=== PATIENT | male | born 1965 | race Caucasian/White ===

== ENCOUNTER 2017-03-01 18:44 | Emergency (ER) | payer MEDICARE, MEDICAID ==
[2017-03-01] MEDS ORDERED: IPRATROPIUM/ALBUTEROL 0.5-2.5 MG/3 ML AMPUL NEB ONE ×2 (19:18→22:17)
[2017-03-01] MEDS ORDERED: PREDNISONE 20 MG TABLET PO ONE (19:18)
--- NOTE | 2017-03-01 19:20 | ER Document Report ---
ED Medical Screen (RME) - General Chief Complaint: Breathing Difficulty Stated Complaint: SHORTNESS OF BREATH Notes: This 52-year-old asthmatic patient from [place], reports going to eat it the [employer] restaurant last night. When he walked outside after eating he had sudden onset of wheezing chest tightness clear sputum and nasal congestion. He uses albuterol inhaler but does not seem to be helping. He continues to have some difficulty breathing. Quick exam shows him to have wheezes rhonchi, nasal congestion and clear sputum. This is most consistent with an allergic reaction either to the pollen or something he ate last night. I have greeted and performed a rapid initial assessment of this patient. A comprehensive ED assessment and evaluation of the patient, analysis of test results and completion of the medical decision making process will be conducted by additional ED providers. TRAVEL OUTSIDE OF THE [place] IN LAST 30 DAYS: No - Related Data Allergies/Adverse Reactions: azithromycin [From Zithromax] Allergy (Verified 03/01/17 18:46) clarithromycin [From Biaxin] Allergy (Verified 03/01/17 18:46) sulfamethoxazole [From Bactrim] Allergy (Verified 03/01/17 18:46) trimethoprim [From Bactrim] Allergy (Verified 03/01/17 18:46) Past Medical History Renal/ Medical History: Denies: Hx Peritoneal Dialysis Physical Exam - Vital signs Vitals: Temp Pulse Resp BP Pulse Ox 99.3 F 109 H 18 154/87 H 95 03/01/17 18:46 03/01/17 18:46 03/01/17 18:46 03/01/17 18:46 03/01/17 18:46 Course - Vital Signs Vital signs: Temp Pulse Resp BP Pulse Ox 99.3 F 109 H 18 154/87 H 95 03/01/17 18:46 03/01/17 18:46 03/01/17 18:46 03/01/17 18:46 03/01/17 18:46
[2017-03-01 19:31] LABS: ABSOLUTE BASOPHILS # (AUTO) 0.1 10^3/uL (0.0-0.2); ABSOLUTE EOSINOPHILS # (AUTO) 0.2 10^3/uL (0.0-0.6); ABSOLUTE LYMPHOCYTES (AUTO) 1.2 10^3/uL (0.5-4.7); ABSOLUTE MONOCYTES (AUTO) 0.8 10^3/uL (0.1-1.4); ABSOLUTE NEUT (AUTO) 5.6 10^3/uL (1.7-8.2); EOSINOPHILS % (AUTO) 2.3 % (0-6); HEMOGLOBIN 16.5 g/dL (13.5-17.0); HGB HCT DIFFERENCE 1.5; LYMPHOCYTES % (AUTO) 15.7 % (13-45); MEAN CORPUSCULAR HEMOGLOBIN 29.7 pg (27.0-33.4); MEAN CORPUSCULAR HGB CONC 34.4 g/dL (32.0-36.0); MEAN CORPUSCULAR VOLUME 86 fl (80-97); MONOCYTES % (AUTO) 10.1 % (3-13); RED BLOOD COUNT 5.57 10^6/uL (4.35-5.55); RED CELL DISTRIBUTION WIDTH 13.1 % (11.5-14.0); SEGMENTED NEUTROPHILS % (AUTO) 70.9 % (42-78); WHITE BLOOD COUNT 7.9 10^3/uL (4.0-10.5)
[2017-03-01 19:53] LABS: ALANINE AMINOTRANSFERASE 50 U/L (21-72); ALBUMIN 4.8 g/dL (3.5-5.0); ALKALINE PHOSPHATASE 53 U/L (38-126); ANION GAP 11 (5-19); ASPARTATE AMINO TRANSFERASE 36 U/L (17-59); BILIRUBIN,DIRECT 0.3 mg/dL (0.0-0.4); BILIRUBIN,TOTAL 0.8 mg/dL (0.2-1.3); BLOOD UREA NITROGEN 18 mg/dL (7-20); CALCIUM 9.8 mg/dL (8.4-10.2); CARBON DIOXIDE 29 mmol/L (22-30); CHLORIDE 103 mmol/L (98-107); GLUCOSE 114 mg/dL (75-110); POTASSIUM 4.7 mmol/L (3.6-5.0); SODIUM 143.1 mmol/L (137-145); TOTAL PROTEIN 7.1 g/dL (6.3-8.2)
--- NOTE | 2017-03-01 22:22 | ER Document Report ---
ED Respiratory Problem - General Chief Complaint: Breathing Difficulty Stated Complaint: SHORTNESS OF BREATH Notes: The patient is a 52-year-old male, past medical history asthma, current smoker, Nini's, mitral valve prolapse, presents with 1 day of wheezing, cough and rhinorrhea after he exited a restaurant last night. He did not have any foods that he is never eaten before. He tried using his albuterol inhaler without much relief of his symptoms. His asthma is well-controlled and he has not had an exacerbation in several years. He denies chest pain, leg swelling, hemoptysis, nausea, vomiting, abdominal pain, fevers or sputum. TRAVEL OUTSIDE OF THE [place] IN LAST 30 DAYS: No - Related Data Allergies/Adverse Reactions: azithromycin [From Zithromax] Allergy (Verified 03/01/17 18:46) clarithromycin [From Biaxin] Allergy (Verified 03/01/17 18:46) sulfamethoxazole [From Bactrim] Allergy (Verified 03/01/17 18:46) trimethoprim [From Bactrim] Allergy (Verified 03/01/17 18:46) Past Medical History - General Information source: Patient - Social History Smoking Status: Current Every Day Smoker Family History: Reviewed & Not Pertinent Patient has suicidal ideation: No Patient has homicidal ideation: No Renal/ Medical History: Denies: Hx Peritoneal Dialysis Review of Systems - Review of Systems Notes: REVIEW OF SYSTEMS: CONSTITUTIONAL: -fevers, -chills EENT: +rhinnorhea, -eye pain, -difficulty swallowing CARDIOVASCULAR:-chest pain, -syncope. RESPIRATORY: +cough, +SOB GASTROINTESTINAL: -abdominal pain, - nausea, -vomiting, -diarrhea GENITOURINARY: -dysuria, -hematuria MUSCULOSKELETAL: -back pain, -neck pain SKIN: -rash or skin lesions. HEMATOLOGIC: -easy bruising or bleeding. LYMPHATIC: -swollen, enlarged glands. NEUROLOGICAL: -altered mental status or loss of consciousness, -headache, - neurologic symptoms PSYCHIATRIC: -anxiety, -depression. ALL OTHER SYSTEMS REVIEWED AND NEGATIVE. Physical Exam - Vital signs Vitals: Temp Pulse Resp BP Pulse Ox 99.3 F 109 H 18 154/87 H 95 03/01/17 18:46 03/01/17 18:46 03/01/17 18:46 03/01/17 18:46 03/01/17 18:46 - Notes Notes: PHYSICAL EXAMINATION: GENERAL: Well-appearing, well-nourished and in no acute distress. HEAD: Atraumatic, normocephalic. EYES: Pupils equal round and reactive to light, extraocular movements intact, sclera anicteric, conjunctiva are normal. ENT: Clear rhinorrhea, nares patent, oropharynx clear without exudates. Moist mucous membranes. NECK: Normal range of motion, supple without lymphadenopathy LUNGS: Coarse breath sounds with rhonchi and wheezes. No respiratory distress. HEART: Regular rate and rhythm ABDOMEN: Soft, nontender, normoactive bowel sounds. No guarding, no rebound. No masses appreciated. EXTREMITIES: Normal range of motion, no pitting or edema. No cyanosis. NEUROLOGICAL: Cranial nerves grossly intact. Normal speech, normal gait. Normal sensory, motor, and reflex exams. PSYCH: Normal mood, normal affect. SKIN: Warm, Dry, normal turgor, no rashes or lesions noted. Course - Re-evaluation Re-evalutation: Patient with a mild asthma exacerbation, which may be from pollen or pine tree allergies, since he is visiting from [place]. After steroids and 3 DuoNeb 's, patient feels much better and is in no respiratory distress. Repeat lung exam shows resolution of his wheezes. Will send home with 4 more days of prednisone and instructions to use his home albuterol as needed. Given strict return precautions and he understands. - Vital Signs Vital signs: Temp Pulse Resp BP Pulse Ox 99.3 F 109 H 18 154/87 H 95 03/01/17 18:46 03/01/17 18:46 03/01/17 18:46 03/01/17 18:46 03/01/17 18:46 - Laboratory Result Diagrams: 03/01/17 19:20 03/01/17 19:20 Laboratory results interpreted by me: 03/01/17 03/01/17 19:20 19:20 RBC 5.57 H Plt Count 127 L Glucose 114 H Discharge - Discharge Clinical Impression: Asthma exacerbation Condition: Good Additional Instructions: ASTHMA: You have been diagnosed as having asthma. This is a condition where there is episodic tightness in the bronchial tubes. Allergies, infections, and polluted or cold air may be contributing factors. Emergency treatment of a severe asthma attack may include adrenaline shots , or bronchodilator aerosol. You may feel lightheaded, have a decreased exercise tolerance and a rapid pulse for an hour or two. Rest and get plenty of fluids. Home treatment of asthma requires bronchodilator drugs. These can be administered by injection, inhalation, or by mouth. Antibiotics and corticosteroids may be required for some patients. You should avoid chemical fumes, dusts, pollens, and exercising in very cold or dry air. If you smoke, stop!! If you develop a fever, increased wheezing, chest pain, or severe shortness of breath, you should contact the doctor immediately. STEROID MEDICATION: You have been given an injection of or oral medicine of the cortisone/ steroid class. This medication is used to control inflammation or allergy. Gustavo t is usually only given for a short period of time, until the acute process subsides. There are usually no side effects from short-term use of cortisone-like medications. Some persons feel an increased sense of well-being and are not sleepy at bedtime. Long-term use of cortisone medications is best avoided, unless required for a severe condition. If your condition does not remit, or relapses after the course of corticosteroid medication, you should consult your physician. INHALED BRONCHODILATORS: You have received treatment(s) of and/or prescription for an inhaled bronchodilator -- a medication which stimulates the airways in the lung to dilate. This improves the flow of air in asthma, bronchitis, and emphysema. These medicines have some similarity to adrenaline, and can cause similar side effects: shakiness, racing heart, and a sense of nervousness. These side effects decrease with time. Contact your doctor if these side effects are severe. Do not over-use the medicine. Too-frequent use of the inhaler may make it ineffective. Call your doctor if the inhaler is not controlling your symptoms at the prescribed doses. SMOKING: If you smoke, you should stop smoking. The tar and chemicals in cigarette smoke are harmful. Smoking has been shown to cause: emphysema chronic bronchitis lung cancer mouth and throat cancer stomach and pancreas cancer premature aging defects In addition, smoking increases ear and lung infections in children of smokers. FOLLOW-UP CARE: If you have been referred to a physician for follow-up care, call the physician s office for an appointment as you were instructed or within the next two days. If you experience worsening or a significant change in your symptoms, notify the physician immediately or return to the Emergency Department at any time for re-evaluation. Prescriptions: Prednisone [Deltasone 20 mg Tablet] 3 tab PO DAILY 5 Days
[2017-03-02 01:07] VITALS: BP 146/87
== END 2017-03-02 00:15 ==
LOC: EDBD 18:44 → ER 18:44
DX: J45.901 Unspecified asthma with (acute) exacerbation (principal); F17.200 Nicotine dependence, unspecified, uncomplicated; E06.3 Autoimmune thyroiditis; Z88.3 Allergy status to other anti-infective agents
CPT/HCPCS: 94640 ×2; 99284; 36415; 85025; 80053; A9270 ×2; J7512; J7620

== ENCOUNTER 2017-07-16 11:34 | Emergency (ER) | payer MEDICARE, MEDICAID ==
--- NOTE | 2017-07-16 12:37 | RADIOLOGY REPORT (SQ) ---
EXAM DESCRIPTION: CT HEAD WITHOUT COMPLETED DATE/TIME: 07/16/2017 12:20 pm REASON FOR STUDY: left leg numbness x4 days COMPARISON: None. TECHNIQUE: Axial images acquired through the brain without intravenous contrast. Images reviewed wi th bone, brain and subdural windows. Images stored on PACS. All CT scanners at this facility use dose modulation, iterative reconstruction, and/or weight based d osing when appropriate to reduce radiation dose to as low as reasonably achievable (ALARA). [facility]: Dose Right [facility]: CareDose [facility]: Dose Right [facility]: Teradose 4D [facility]: [employer] RADIATION DOSE: Up-to-date CT equipment and radiation dose reduction techniques were employed. CTDIv ol: 64.6 mGy. DLP: 1163 mGy-cm. mGy. LIMITATIONS: Motion artifact FINDINGS: Motion artifact. On images without motion, no acute intracranial hemorrhage, mass effect, or midline shift is present. No gross evidence of acute large territory ischemic change. No skull fracture. Left maxillary sinus mucus or serous retention cyst IMPRESSION: Limited study from motion artifact. No gross acute intracranial changes COMMENT: Quality ID # [id number]: Final reports with documentation of one or more dose reduction techniques (e.g., Automated exposure control, adjustment of the mA and/or kV according to patient size, use of iterative reconstruction technique) TECHNICAL DOCUMENTATION: JOB ID: [id number] [email or web address]- All Rights Reserved
[2017-07-16 13:30] VITALS: BP 128/98
--- NOTE | 2017-07-16 13:32 | ER Document Report ---
ED General - General Chief Complaint: Numbness Stated Complaint: NUMBNESS IN LEG Time Seen by Provider: 07/16/17 12:08 TRAVEL OUTSIDE OF THE [place] IN LAST 30 DAYS: No - HPI Patient complains to provider of: Numbness and tingling left leg Notes: Patient is coming in for numbness and tingling of his left leg ongoing for the last 4 days. Patient states numbness and tingling is on the anterior robb goes to the top of his foot. Patient denies any recent trauma denies any headaches denies any fever chills nausea vomiting diarrhea. Patient denies any recent antibiotics or similar symptoms. Otherwise patient is moving all 4 extremities and bleeding without difficulty upon my evaluation. - Related Data Allergies/Adverse Reactions: amoxicillin [From Augmentin] Allergy (Verified 07/16/17 12:07) azithromycin [From Zithromax] Allergy (Verified 07/16/17 12:06) clarithromycin [From Biaxin] Allergy (Verified 07/16/17 12:06) clavulanic acid [From Augmentin] Allergy (Verified 07/16/17 12:07) sulfamethoxazole [From Bactrim] Allergy (Verified 07/16/17 12:06) trimethoprim [From Bactrim] Allergy (Verified 07/16/17 12:06) Home Medications: Current Home Medications Alprazolam [Xanax Xr 1 mg Tablet Extended Release] 1 tab PO DAILY 07/16/17 [ History] Aspirin 325 mg PO DAILY 07/16/17 [History] Fluticasone Propionate [Flovent Hfa 110 Mcg Inhalation Aerosol 12 gm] 2 puff IH Q12 07/16/17 [History] Hydroxyzine Pamoate [Vistaril] 100 mg PO QHS 07/16/17 [History] Levothyroxine Sodium [Synthroid] 200 mcg PO DAILY 07/16/17 [History] Losartan Potassium [Cozaar 50 mg Tablet] 50 mg PO DAILY 07/16/17 [History] Niacin [Niaspan] 1,000 mg PO QHS 07/16/17 [History] Olanzapine [Zyprexa] 10 mg PO QHS 07/16/17 [History] Quetiapine Fumarate [Seroquel 100 mg Tablet] 150 mg PO QHS 07/16/17 [History] Rosuvastatin Calcium [Crestor 20 mg Tablet] 20 mg PO DAILY 07/16/17 [History] Sertraline HCl [Zoloft] 150 mg PO DAILY 07/16/17 [History] Past Medical History - Social History Smoking Status: Unknown if Ever Smoked Chew tobacco use (# tins/day): No Frequency of alcohol use: None Drug Abuse: None Family History: Reviewed & Not Pertinent Patient has suicidal ideation: No Patient has homicidal ideation: No - Past Medical History Cardiac Medical History: Reports: Hx Hypertension Renal/ Medical History: Denies: Hx Peritoneal Dialysis Review of Systems - Review of Systems Constitutional: No symptoms reported EENT: No symptoms reported Cardiovascular: No symptoms reported Respiratory: No symptoms reported Gastrointestinal: No symptoms reported Genitourinary: No symptoms reported Male Genitourinary: No symptoms reported Musculoskeletal: No symptoms reported Skin: No symptoms reported Hematologic/Lymphatic: No symptoms reported Neurological/Psychological: Numbness -: Yes All other systems reviewed and negative Physical Exam - Vital signs Vitals: Temp Pulse Resp BP Pulse Ox 98.8 F 102 H 20 132/100 H 97 07/16/17 11:52 07/16/17 11:52 07/16/17 11:52 07/16/17 11:52 07/16/17 11:52 Interpretation: Normal - General General appearance: Appears well, Alert - HEENT Head: Normocephalic, Atraumatic Eyes: Normal Pupils: PERRL - Respiratory Respiratory status: No respiratory distress Chest status: Nontender Breath sounds: Normal Chest palpation: Normal - Cardiovascular Rhythm: Regular Heart sounds: Normal auscultation Murmur: No - Abdominal Inspection: Normal Distension: No distension Bowel sounds: Normal Tenderness: Nontender Organomegaly: No organomegaly - Back Back: Normal, Nontender - Extremities General upper extremity: Normal inspection, Nontender, Normal color, Normal ROM , Normal temperature General lower extremity: Normal inspection, Nontender, Normal color, Normal ROM , Normal temperature, Normal weight bearing. No: Daija's sign - Neurological Neuro grossly intact: Yes Cognition: Normal Orientation: AAOx4 [place] Coma Scale Eye Opening: Spontaneous [place] Coma Scale Verbal: Oriented Rina Coma Scale Motor: Obeys Commands Rina Coma Scale Total: 15 Speech: Normal Cranial nerves: Normal Cerebellar coordination: Normal Motor strength normal: LUE, RUE, LLE, RLE Sensory: Normal Notes: Patient with normal and equal sensation with testing with a wooden end of a Q- tip patient states no discrepancy when touching the bottom of the patient's foot medial lateral dorsum of the foot on bilateral sides - Psychological Associated symptoms: Normal affect, Normal mood - Skin Skin Temperature: Warm Skin Moisture: Dry Skin Color: Normal Course - Re-evaluation Re-evalutation: 07/16/17 16:20 CT of the head was negative. X-ray of the patient's lumbar spine is also negative except for slight acute arthritis lumbar spine was read by myself. Patient was discharged home more likely experiencing numbness and tingling due to compression of the nerve behind the fibula. Patient was encouraged to use a pain follow-up with his primary care physician symptoms worsen does not improve with bracing - Vital Signs Vital signs: Temp Pulse Resp BP Pulse Ox 98.8 F 92 16 128/98 H 99 07/16/17 11:52 07/16/17 13:29 07/16/17 13:29 07/16/17 13:29 07/16/17 13:29 Discharge - Discharge Clinical Impression: Numbness and tingling of left leg Condition: Good Disposition: HOME, SELF-CARE Instructions: Neuropathy ([facility]) Additional Instructions: I believe your symptoms are caused by pinching of the nerve either in your lumbar spine or beneath the your knee. I recommend getting a tight band until support of the bones beneath the knee he can pick one up at the local pharmacy. Return to the ER symptoms worsen. I recommend follow-up with your primary care physician in the next 1 or 2 weeks. Your CAT scan and x-rays today are negative for any acute signs of stroke x-ray does show some signs of arthritic changes however no other concerning etiology. Referrals: BRYANNA WESTBROOK MD [Primary Care Provider] - Follow up as needed
--- NOTE | 2017-07-16 13:40 | RADIOLOGY REPORT (SQ) ---
EXAM DESCRIPTION: L SPINE WHOLE COMPLETED DATE/TIME: 07/16/2017 12:34 pm REASON FOR STUDY: left leg numbness x4 days COMPARISON: None. NUMBER OF VIEWS: Five views including obliques. TECHNIQUE: AP, lateral, oblique, and sacral radiographic images acquired of the lumbar spine. LIMITATIONS: None. FINDINGS: MINERALIZATION: Normal. SEGMENTATION: Normal. No transitional anatomy. ALIGNMENT: Normal. VERTEBRAE: Maintained height. No fracture or worrisome bone lesion. DISCS: Preserved height. No significant osteophytes or end plate irregularity. POSTERIOR ELEMENTS: Pedicles and facets are intact. No pars defect or posterior arch defects. HARDWARE: None in the spine. PARASPINAL SOFT TISSUES: Normal. PELVIS: Intact as visualized. No fractures or worrisome bone lesions. SI joints intact. OTHER: No other significant finding. IMPRESSION: NORMAL 5 VIEW LUMBAR SPINE. TECHNICAL DOCUMENTATION: JOB ID: [id number] [employer]- All Rights Reserved
== END 2017-07-16 13:36 | disposition home or self-care (01) ==
LOC: ER 11:34
DX: R20.0 Anesthesia of skin (principal); R20.2 Paresthesia of skin; M47.9 Spondylosis, unspecified; I10 Essential (primary) hypertension; Z88.0 Allergy status to penicillin; Z88.1 Allergy status to other antibiotic agents
CPT/HCPCS: 70450; 72110; 99284

== ENCOUNTER 2017-10-12 02:20 | Emergency (ER) | payer MEDICARE, MEDICAID ==
[2017-10-12] MEDS ORDERED: ALBUTEROL SULFATE 0.083% NEB 2.5 MG/3 ML AMPUL NEB ONE (03:19)
[2017-10-12] MEDS ORDERED: ONDANSETRON 4 MG TAB.RAPDIS PO ONE (03:19)
--- NOTE | 2017-10-12 03:19 | ER Document Report ---
ED General - General Chief Complaint: Anxiety Stated Complaint: MEDICATION REACTION Time Seen by Provider: 10/12/17 02:34 Notes: Patient is a 52-year-old male who presents emergency department chief complaint of anxiety. Patient states that he normally takes medications to go to bed about approximately 11 PM. Patient states that he took 150 mg of Zoloft, 100 mg of Vistaril, 1 mg of Xanax. After he took his medications he states he had difficulty going to sleep therefore he wanted to be evaluated in the emergency department. At this time he denies any headaches, chest pain, shortness of breath, abdominal pain. He does admit to nausea. Otherwise he denies any vomiting. Past medical history significant for OCD, somatic OCD, anxiety, COPD, hypertension, hyperlipidemia. TRAVEL OUTSIDE OF THE [place] IN LAST 30 DAYS: No - Related Data Allergies/Adverse Reactions: amoxicillin [From Augmentin] Allergy (Verified 10/12/17 02:25) azithromycin [From Zithromax] Allergy (Verified 10/12/17 02:25) clarithromycin [From Biaxin] Allergy (Verified 10/12/17 02:25) clavulanic acid [From Augmentin] Allergy (Verified 10/12/17 02:25) sulfamethoxazole [From Bactrim] Allergy (Verified 10/12/17 02:25) trimethoprim [From Bactrim] Allergy (Verified 10/12/17 02:25) Past Medical History - Social History Smoking Status: Current Every Day Smoker Family History: Reviewed & Not Pertinent Patient has suicidal ideation: No Patient has homicidal ideation: No - Past Medical History Cardiac Medical History: Reports: Hx Hypertension Renal/ Medical History: Denies: Hx Peritoneal Dialysis Review of Systems - Review of Systems Constitutional: No symptoms reported Cardiovascular: No symptoms reported Respiratory: No symptoms reported Gastrointestinal: See HPI Musculoskeletal: No symptoms reported Neurological/Psychological: See HPI Physical Exam - Vital signs Vitals: Temp Pulse Resp BP Pulse Ox 97.7 F 96 18 174/105 H 98 10/12/17 02:25 10/12/17 02:25 10/12/17 02:25 10/12/17 02:25 10/12/17 02:25 - Notes Notes: PHYSICAL EXAM GENERAL: Alert, interacts well. HEAD: Normocephalic, atraumatic. LUNGS: Mild diffuse inspiratory wheezes bilaterally without rales, or rhonchi. No respiratory distress. HEART: Regular rate and rhythm. No murmurs, gallops, or rubs. ABDOMEN: Soft, nondistended, nontender. No guarding, rebound, or rigidity.. Bowel sounds present in all 4 quadrants. EXTREMITIES: Moves all 4 extremities spontaneously. No edema, radial and dorsalis pedis pulses 2/4 bilaterally. No cyanosis. NEUROLOGICAL: Alert and oriented x4. Normal speech. PSYCH: Normal affect, normal mood. SKIN: Warm, dry, normal turgor. No rashes or lesions noted. Course - Re-evaluation Re-evalutation: 10/12/17 04:15 Patient is a 52-year-old male who is hemodynamically stable, no acute distress afebrile. Patient clinically states he feels much better now that he is in the emergency department. Nausea resolved after Zofran and wheezes improved after breathing treatment. Patient denies any suicidal or homicidal ideations. Patient states that he would like to go home and will follow up with his psych provider this week. Stable for discharge home - Vital Signs Vital signs: Temp Pulse Resp BP Pulse Ox 97.7 F 95 20 152/91 H 94 10/12/17 02:25 10/12/17 04:25 10/12/17 04:25 10/12/17 04:13 10/12/17 04:25 - EKG Interpretation by Me EKG shows normal: Sinus rhythm Rate: Normal Rhythm: NSR When compared to previous EKG there are: Previous EKG unavailable Discharge - Discharge Clinical Impression: COPD (chronic obstructive pulmonary disease), Anxiety Condition: Good Disposition: HOME, SELF-CARE Instructions: Anxiety ([facility]) Additional Instructions: Chronic Obstructive Lung Disease You have chronic obstructive lung disease (COPD). The symptoms come from emphysema (damage to small airways, with trapping of air in large sacks in the lung) and chronic bronchitis (repeated infection and damage to larger airways). The cause is almost always cigarette smoking, although dust exposure, asthma, and infections contribute. You should avoid fumes, dust, and smoke (especially tobacco smoke). Your condition will flare from time to time. There is no cure, but the symptoms can be treated. Bronchodilators (asthma medicine) are often helpful. Antibiotics help when infection is present. When shortness of breath is severe, we may prescribe cortisone medication. If medicine doesn't help enough, we can arrange for you to have an oxygen tank at home. Notify your doctor at once if sputum becomes thick, foul, or bloody, if you develop a fever or chest pain, or if your shortness of breath worsens. Referrals: BRYANNA WESTBROOK MD [Primary Care Provider] - 10/12/17
[2017-10-12 04:13] VITALS: BP 152/91
--- NOTE | 2017-10-12 07:50 | EKG REPORT ---
SEVERITY:- ABNORMAL ECG - SINUS RHYTHM LEFT ANTERIOR FASCICULAR BLOCK INCOMPLETE RIGHT BUNDLE BRANCH BLOCK : Confirmed by: Howard Sotelo MD 12-Oct-2017 07:50:14
== END 2017-10-12 04:25 | disposition home or self-care (01) ==
LOC: ER 02:20
DX: F41.9 Anxiety disorder, unspecified (principal); F45.8 Other somatoform disorders; Z79.899 Other long term (current) drug therapy; J44.9 Chronic obstructive pulmonary disease, unspecified; R11.0 Nausea; I10 Essential (primary) hypertension; F17.200 Nicotine dependence, unspecified, uncomplicated; Z88.0 Allergy status to penicillin; Z88.1 Allergy status to other antibiotic agents
CPT/HCPCS: 93005; 94640; 99283; 93010; A9270 ×2; S0119

== ENCOUNTER 2017-11-18 18:44 | Emergency (ER) | payer MEDICARE, MEDICAID ==
[2017-11-18 18:58] VITALS: BP 141/85
--- NOTE | 2017-11-18 19:05 | ER Document Report ---
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 He was managed with alprazolam 1 mg 3 times a day while living in [place]. He moved to [place] in April. He went to [facility] and they wanted him to decrease to 0.5 mg 3 times a day with 1 mg of Ativan twice a day. He then went to Dr. Myers his primary care doctor who gave him a prescription for 1 mg of alprazolam to be taken twice a day. He took 1 mg this morning and at 330 this afternoon he had a severe anxiety attack which his of many years confirms. He took another alprazolam at 5:30 pm and wanted permission to take 1 mg 3 times a day until he could see Dr. Myers again. No chest pain, sob, abd. pain, headache, or dizziness. Associated Symptoms: None Exacerbated by: Denies Relieved by: Denies Similar symptoms previously: Yes Recently seen / treated by doctor: Yes - ROS ROS below otherwise negative: Yes Systems Reviewed and Negative: Yes All other systems reviewed and negative Past Medical History - General Information source: Patient - Social History Smoking Status: Current Every Day Smoker Frequency of alcohol use: None Drug Abuse: None Lives with: Spouse/Significant other Family History: Reviewed & Not Pertinent - Past Medical History Cardiac Medical History: Reports: Hx Hypertension Renal/ Medical History: Denies: Hx Peritoneal Dialysis Psychiatric Medical History: Reports: Hx Anxiety, Hx Obsessive Compulsive Disorder Vertical Provider Document - CONSTITUTIONAL Agree With Documented VS: Yes Exam Limitations: No Limitations - INFECTION CONTROL TRAVEL OUTSIDE OF THE [place] IN LAST 30 DAYS: No - HEENT HEENT: Normocephalic. negative: Pharyngeal Erythema - NECK Neck: Supple - RESPIRATORY Respiratory: Breath Sounds Normal, No Respiratory Distress O2 Sat by Pulse Oximetry: 98 - CARDIOVASCULAR Cardiovascular: Regular Rate, Regular Rhythm - GI/ABDOMEN Gastrointestinal: Abdomen Soft, Abdomen Non-Tender - MUSCULOSKELETAL/EXTREMETIES Musculoskeletal/Extremeties: MAEW, FROM - NEURO Level of Consciousness: Awake, Alert, Appropriate Motor/Sensory: No Motor Deficit, No Sensory Deficit - DERM Integumentary: Warm, Dry Course - Vital Signs Vital signs: Temp Pulse Resp BP Pulse Ox 98.4 F 84 18 141/85 H 98 11/18/17 18:56 11/18/17 18:56 11/18/17 18:56 11/18/17 18:56 11/18/17 18:56 Discharge - Discharge Clinical Impression: History of OCD (obsessive compulsive disorder), Anxiety Condition: Good Disposition: HOME, SELF-CARE Instructions: Anxiety ([facility]), Obsessive-Compulsive Disorder ([facility]) Additional Instructions: take the alprazolam 1mg three times per day until you see dr. myers and the new psych doctor again stop the ativan to er any worsening of symptoms Referrals: BRYANNA MYERS MD [Primary Care Provider] - 11/19/17
== END 2017-11-18 19:25 | disposition home or self-care (01) ==
LOC: ER 18:44
DX: F41.9 Anxiety disorder, unspecified (principal); Z79.899 Other long term (current) drug therapy; Z86.59 Personal history of other mental and behavioral disorders; I10 Essential (primary) hypertension; F17.200 Nicotine dependence, unspecified, uncomplicated
CPT/HCPCS: 99283

== ENCOUNTER 2017-11-25 10:30 | Emergency (ER) | payer MEDICARE, MEDICAID ==
[2017-11-25 10:36] VITALS: BP 120/85
--- NOTE | 2017-11-25 11:16 | ER Document Report ---
ED General - General Chief Complaint: Numbness of Arm Stated Complaint: NUMBNESS IN LEFT ARM Time Seen by Provider: 11/25/17 11:05 Mode of Arrival: Ambulatory Information source: Patient, [facility] Records Notes: 52-year-old male patient with severe anxiety disorder diagnosed with obsessive- compulsive disorder somatic anxiety disorder. Was here 7 days ago for panic attack. Was here about 6 weeks ago for anxiety attack. States he came today at the insistence of his family. He developed numbness to the left upper extremity about 630 this morning which lasted about 10 AM. Is gone now and his only complaint is left scapular back pain. TRAVEL OUTSIDE OF THE U.S. IN LAST 30 DAYS: No - Related Data Allergies/Adverse Reactions: amoxicillin [From Augmentin] Allergy (Verified 11/25/17 10:31) azithromycin [From Zithromax] Allergy (Verified 11/25/17 10:31) clarithromycin [From Biaxin] Allergy (Verified 11/25/17 10:31) clavulanic acid [From Augmentin] Allergy (Verified 11/25/17 10:31) sulfamethoxazole [From Bactrim] Allergy (Verified 11/25/17 10:31) trimethoprim [From Bactrim] Allergy (Verified 11/25/17 10:31) Past Medical History - General Information source: Patient, [facility] Records - Social History Smoking Status: Current Every Day Smoker Cigarette use (# per day): Yes Chew tobacco use (# tins/day): No Smoking Education Provided: No Frequency of alcohol use: None Drug Abuse: None Occupation: Unemployed Lives with: Family Family History: Reviewed & Not Pertinent Patient has suicidal ideation: No Patient has homicidal ideation: No - Past Medical History Cardiac Medical History: Reports: Hx Hypertension Psychiatric Medical History: Reports: Hx Anxiety, Hx Obsessive Compulsive Disorder Surgical Hx: Negative Review of Systems - Review of Systems Constitutional: No symptoms reported EENT: No symptoms reported Cardiovascular: No symptoms reported Respiratory: No symptoms reported Gastrointestinal: No symptoms reported Genitourinary: No symptoms reported Musculoskeletal: See HPI Skin: No symptoms reported Hematologic/Lymphatic: No symptoms reported Neurological/Psychological: Anxiety Physical Exam - Vital signs Vitals: Temp Pulse Resp BP Pulse Ox 98.1 F 86 20 120/85 99 11/25/17 10:34 11/25/17 10:34 11/25/17 10:34 11/25/17 10:34 11/25/17 10:34 Interpretation: Normal - General General appearance: Appears well, Alert In distress: None - HEENT Head: Normocephalic, Atraumatic Eyes: Normal Pupils: PERRL Neck: Normal - Respiratory Respiratory status: No respiratory distress Breath sounds: Normal - Cardiovascular Rhythm: Regular Heart sounds: Normal auscultation Murmur: No - Abdominal Inspection: Normal - Back Back: Tender - There is some tenderness to palpate the left inferior lateral scapular back muscles. This reproduces his complaint of left-sided upper back pain - Extremities General upper extremity: Normal inspection, Normal ROM General lower extremity: Normal inspection, Normal ROM - Neurological Neuro grossly intact: Yes - Entirely normal neurological exam - Psychological Associated symptoms: Anxious - Skin Skin Temperature: Warm Skin Moisture: Dry Skin Color: Normal Course - Vital Signs Vital signs: Temp Pulse Resp BP Pulse Ox 98.1 F 86 20 120/85 99 11/25/17 10:34 11/25/17 10:34 11/25/17 10:34 11/25/17 10:34 11/25/17 10:34 Discharge - Discharge Clinical Impression: Arm paresthesia, left, Anxiety, Left scapular muscle pain Disposition: HOME, SELF-CARE Additional Instructions: Anxiety The physician feels that some of your health problems are being caused by anxiety. Anxiety affects your health in many ways. Anxiety alone can cause palpitations, sweats, chest pains, abdominal pains, shortness of breath, and headaches. It contributes to ulcer disease, high blood pressure, irritable bowel syndrome, and has been shown to cause flare-ups of many other diseases. Anxiety is not a simple disorder to treat. If the anxiety is due to recent life stresses, you may simply need time to "work through" the changes. If the anxiety is due to an underlying unhappiness with yourself or due to psychiatric disturbance, professional help will be needed. Your physician can refer you for further help if needed. Anti-anxiety medication is occasionally given if the stress is acute or if you are having trouble sleeping. Chronic or frequent use of these medications is not a good idea because the body becomes reliant on it, preventing you from dealing with life's normal stresses. Muscle Strain You have probably strained the muscles in your left scapular back where it is tender at this time. This often occurs with strenuous exertion, or during an injury that suddenly stretches the muscle. The seriousness of a strain varies. Some strains heal within days, others cause problems for months. X-rays cannot show a muscle strain. X-rays are taken only if symptoms suggest that a fracture could be present. The usual treatment of a muscle strain is rest and ice packs. Sometimes, a sling, splint, or crutches may be necessary to rest the muscle. The muscle can be used again once pain subsides. Severe strains require a special exercise and stretching program to prevent permanent stiffness and disability. Your doctor will advise you if this will be necessary. Call the doctor immediately if pain or swelling becomes severe, or if numbness or discoloration develop. Numbness or Paresthesia Definition: Numbness and tingling are decreased or abnormal sensations caused by altered sensory nerve function. Description: The feeling of having a foot "fall asleep" is a familiar one. This same combination of numbness and tingling can occur in any region of the body and may be caused by a wide variety of disorders. Sensations such as these , which occur without any associated stimulus, are called paresthesias. Other types of paresthesias include feelings of cold, warmth, burning, itching, and skin crawling. //////////////////////////////////////////////////////////////////////////////// //////////////////////////////////////////////////////////////////////////////// ///////////////// The numbness you are experiencing does not sound like it was a neurological problem. The tenderness in your left scapular back is related to muscle tenderness. You should continue your regular medications. Take Tylenol and Motrin for muscle pain if needed. Follow-up with your primary care provider if any further problems. RETURN TO THE EMERGENCY ROOM IF ANY NEW OR WORSENING SYMPTOMS.
== END 2017-11-25 11:40 | disposition home or self-care (01) ==
LOC: ER 10:30
DX: F41.9 Anxiety disorder, unspecified (principal); R20.0 Anesthesia of skin; F42.9 Obsessive-compulsive disorder, unspecified; M54.89 Other dorsalgia; F17.210 Nicotine dependence, cigarettes, uncomplicated; I10 Essential (primary) hypertension; Z88.0 Allergy status to penicillin; Z88.1 Allergy status to other antibiotic agents
CPT/HCPCS: 99283

== ENCOUNTER → 2018-01-29 | Outpatient (CLI) | payer MEDICARE, OTHER, MEDICAID ==
[2018-01-29 08:50] LABS: ABSOLUTE BASOPHILS # (AUTO) 0.1 10^3/uL (0.0-0.2); ABSOLUTE EOSINOPHILS # (AUTO) 0.1 10^3/uL (0.0-0.6); ABSOLUTE LYMPHOCYTES (AUTO) 1.8 10^3/uL (0.5-4.7); ABSOLUTE MONOCYTES (AUTO) 0.4 10^3/uL (0.1-1.4); ABSOLUTE NEUT (AUTO) 5.2 10^3/uL (1.7-8.2); BASOPHILS % (AUTO) 1.4 % (0-2); EOSINOPHILS % (AUTO) 1.2 % (0-6); HEMOGLOBIN 17.5 g/dL (13.5-17.0); MEAN CORPUSCULAR HEMOGLOBIN 29.3 pg (27.0-33.4); MEAN CORPUSCULAR HGB CONC 33.7 g/dL (32.0-36.0); MEAN CORPUSCULAR VOLUME 87 fl (80-97); MONOCYTES % (AUTO) 5.8 % (3-13); PLATELET COUNT 187 10^3/uL (150-450); RED BLOOD COUNT 5.98 10^6/uL (4.35-5.55); RED CELL DISTRIBUTION WIDTH 14.6 % (11.5-14.0); SEGMENTED NEUTROPHILS % (AUTO) 67.6 % (42-78); TOTAL CELLS COUNTED % (AUTO) 100 %; WHITE BLOOD COUNT 7.7 10^3/uL (4.0-10.5)
[2018-01-29 09:07] LABS: ALANINE AMINOTRANSFERASE 40 U/L (21-72); ALBUMIN 5.1 g/dL (3.5-5.0); ALKALINE PHOSPHATASE 46 U/L (38-126); ANION GAP 11 (5-19); ASPARTATE AMINO TRANSFERASE 28 U/L (17-59); BILIRUBIN,DIRECT 0.5 mg/dL (0.0-0.4); BILIRUBIN,TOTAL 0.7 mg/dL (0.2-1.3); BLOOD UREA NITROGEN 17 mg/dL (7-20); CALCIUM 10.5 mg/dL (8.4-10.2); CARBON DIOXIDE 28 mmol/L (22-30); CHLORIDE 104 mmol/L (98-107); GLUCOSE 92 mg/dL (75-110); TOTAL PROTEIN 7.8 g/dL (6.3-8.2); TRIGLYCERIDES 381 mg/dL (<150)
[2018-01-29 09:20] LABS: VLDL CHOLESTEROL 76.2 mg/dL (10-31)
[2018-01-29 09:26] LABS: DIRECT LDL 78 mg/dL (<100)
[2018-01-29 09:33] LABS: FREE T4 (FREE THYROXINE) 1.39 ng/dL (0.78-2.19)
[2018-01-29 09:46] LABS: THYROID STIMULATING HORMONE 9.49 uIU/mL (0.47-4.68)
== END ==
LOC: LAB 08:31
PROVIDERS: ATTEND Internal Medicine
DX: E03.9 Hypothyroidism, unspecified (principal); I10 Essential (primary) hypertension; E78.00 Pure hypercholesterolemia, unspecified; F41.9 Anxiety disorder, unspecified; Z79.899 Other long term (current) drug therapy
CPT/HCPCS: 36415; 80053; 80061; 83036; 84439; 84443; 85025

== ENCOUNTER → 2018-03-28 | Outpatient (CLI) | payer MEDICARE, MEDICAID | LOC: LAB 10:18 | PROVIDERS: ATTEND Psychiatry & Neurology Psychiatry | DX: F43.10 Post-traumatic stress disorder, unspecified (principal); Z79.899 Other long term (current) drug therapy | CPT/HCPCS: 36415; 80164 ==

== ENCOUNTER → 2018-04-02 | Outpatient (CLI) | payer MEDICARE, MEDICAID | LOC: OD 11:56 | PROVIDERS: ATTEND Psychiatry & Neurology Psychiatry | DX: F31.81 Bipolar II disorder (principal); Z79.899 Other long term (current) drug therapy | CPT/HCPCS: 36415; 80164 ==

== ENCOUNTER 2018-08-25 09:31 | Emergency (ER) | payer MEDICARE, MEDICAID ==
--- NOTE | 2018-08-25 09:56 | ER Document Report ---
ED General - General Chief Complaint: Knee Pain Stated Complaint: RIGHT KNEE PAIN Time Seen by Provider: 08/25/18 09:39 Mode of Arrival: Ambulatory Information source: Patient Notes: Patient presents emergency department with complaints of pain behind his right knee. Patient reports he drove from [facility] to home on Wednesday approximately 10 hours. He reports pain started on Wednesday. Denies trauma. Denies other symptoms such as fever vomiting diarrhea although he does complain of some burning when he voids. Denies history of DVT or PE. Denies chest pain shortness of breath. TRAVEL OUTSIDE OF THE U[place] IN LAST 30 DAYS: No - HPI Onset: Yesterday Onset/Duration: Sudden, Persistent Quality of pain: Other - sore, like muscle in a grey iron molder Pain Level: 3 Associated symptoms: Nausea Exacerbated by: Denies Relieved by: Denies Similar symptoms previously: No Recently seen / treated by doctor: No - Related Data Allergies/Adverse Reactions: amoxicillin [From Augmentin] Allergy (Verified 08/25/18 09:35) azithromycin [From Zithromax] Allergy (Verified 08/25/18 09:35) clarithromycin [From Biaxin] Allergy (Verified 08/25/18 09:35) clavulanic acid [From Augmentin] Allergy (Verified 08/25/18 09:35) sulfamethoxazole [From Bactrim] Allergy (Verified 08/25/18 09:35) trimethoprim [From Bactrim] Allergy (Verified 08/25/18 09:35) Past Medical History - General Information source: Patient - Social History Smoking Status: Current Every Day Smoker Chew tobacco use (# tins/day): No Frequency of alcohol use: None Drug Abuse: None Lives with: Family Family History: Reviewed & Not Pertinent Patient has suicidal ideation: No Patient has homicidal ideation: No - Past Medical History Cardiac Medical History: Reports: Hx Hypertension Comment Only: Hx Hypercholesterolemia - triglycerides Pulmonary Medical History: Reports: Hx Asthma Renal/ Medical History: Denies: Hx Peritoneal Dialysis Psychiatric Medical History: Reports: Hx Anxiety, Hx Obsessive Compulsive Disorder Past Surgical History: Reports: Hx Abdominal Surgery - bilateral hernia, Hx Appendectomy Review of Systems - Review of Systems Notes: Review HPI for review of systems., All other systems negative Physical Exam - Vital signs Vitals: Temp Pulse Resp BP Pulse Ox 98.9 F 107 H 20 135/95 H 97 08/25/18 09:37 08/25/18 09:37 08/25/18 09:37 08/25/18 09:37 08/25/18 09:37 - Notes Notes: PHYSICAL EXAMINATION: GENERAL: Well-appearing and in no acute distress HEAD: Atraumatic, normocephalic. EYES: extraocular movements intact, sclera anicteric, conjunctiva are normal. ENT: nares patent, Moist mucous membranes. NECK: Normal range of motion, supple without lymphadenopathy LUNGS: CTAB and equal. No wheezes rales or rhonchi. HEART: Regular rate and rhythm without murmurs ABDOMEN: Soft, no tenderness. No guarding, no rebound EXTREMITIES: Normal range of motion, no pitting edema. No cyanosis. ttp behind right knee, no erythema, no warmth, no swelling, c/o pain with homans NEUROLOGICAL: Cranial nerves grossly intact. Normal sensory/motor exams. PSYCH: Normal mood, normal affect. SKIN: Warm, Dry, normal turgor, no rashes or lesions noted - Abdominal Adult front & back diagram: 1 - c/o pain Course - Re-evaluation Re-evalutation: 08/25/18 09:58 Patient instructed on labs Doppler pending. 08/25/18 Negative Doppler. Labs unremarkable Patient was instructed on the importance of follow-up with Dr. chang. Patient was also instructed signs and symptoms of all blood clot and to return for any further questions. - Vital Signs Vital signs: Temp Pulse Resp BP Pulse Ox 97.8 F 92 20 118/81 97 08/25/18 11:42 08/25/18 11:42 08/25/18 09:37 08/25/18 11:42 08/25/18 11:42 - Laboratory Result Diagrams: 08/25/18 10:00 08/25/18 10:00 Laboratory results interpreted by me: 08/25/18 08/25/18 08/25/18 10:00 10:00 10:00 RBC 5.68 H Hgb 17.1 H Plt Count 136 L Seg Neutrophils % 79.3 H Lymphocytes % 11.2 L APTT 38.0 H Glucose 112 H - Diagnostic Test Radiology reviewed: Image reviewed, Reports reviewed - negative Discharge - Discharge Clinical Impression: Posterior right knee pain Condition: Stable Disposition: HOME, SELF-CARE Instructions: Use of [id number] Ibuprofen ([facility]) Additional Instructions: *You have been evaluated for right posterior knee pain *monitor the site for increased pain, swelling, redness, warmth *Take motrin or tylenol as indicated for pain *Follow up with your primary care provider within one week for recheck *Return to ED for worsening condition, changes, needs Referrals: PASCUAL EPPS MD [NO LOCAL MD] - Follow up in 1 week
[2018-08-25 10:30] LABS: ABSOLUTE EOSINOPHILS # (AUTO) 0.1 10^3/uL (0.0-0.6); ABSOLUTE LYMPHOCYTES (AUTO) 1.1 10^3/uL (0.5-4.7); ABSOLUTE MONOCYTES (AUTO) 0.8 10^3/uL (0.1-1.4); ABSOLUTE NEUT (AUTO) 7.6 10^3/uL (1.7-8.2); BASOPHILS % (AUTO) 0.5 % (0-2); EOSINOPHILS % (AUTO) 0.9 % (0-6); HEMATOCRIT 49.4 % (37.9-51.0); HEMOGLOBIN 17.1 g/dL (13.5-17.0); LYMPHOCYTES % (AUTO) 11.2 % (13-45); MEAN CORPUSCULAR HEMOGLOBIN 30.1 pg (27.0-33.4); MEAN CORPUSCULAR HGB CONC 34.6 g/dL (32.0-36.0); MEAN CORPUSCULAR VOLUME 87 fl (80-97); MONOCYTES % (AUTO) 8.1 % (3-13); PLATELET COUNT 136 10^3/uL (150-450); RED BLOOD COUNT 5.68 10^6/uL (4.35-5.55); RED CELL DISTRIBUTION WIDTH 13.5 % (11.5-14.0); SEGMENTED NEUTROPHILS % (AUTO) 79.3 % (42-78); TOTAL CELLS COUNTED % (AUTO) 100 %; WHITE BLOOD COUNT 9.5 10^3/uL (4.0-10.5)
[2018-08-25 10:31] LABS: APPEARANCE,URINE SLIGHTLY-CLOUDY; BILIRUBIN,URINE NEGATIVE (NEGATIVE); COLOR,URINE YELLOW; GLUCOSE, URINE NEGATIVE (NEGATIVE); KETONES,URINE NEGATIVE (NEGATIVE); LEUKOCYTE ESTERASE,URINE NEGATIVE (NEGATIVE); NITRITE,URINE NEGATIVE (NEGATIVE); PROTEIN,URINE NEGATIVE (NEGATIVE); URINE SPECIFIC GRAVITY 1.012; UROBILINOGEN,URINE NEGATIVE mg/dL (<2.0)
[2018-08-25 10:31] LABS: INTERNATIONAL RATION (INR) 0.93; PROTHROMBIN TIME 12.9 SEC (11.4-15.4)
[2018-08-25 10:50] LABS: ALANINE AMINOTRANSFERASE 38 U/L (21-72); ALBUMIN 4.9 g/dL (3.5-5.0); ALKALINE PHOSPHATASE 45 U/L (38-126); ANION GAP 11 (5-19); ASPARTATE AMINO TRANSFERASE 31 U/L (17-59); BILIRUBIN,DIRECT 0.4 mg/dL (0.0-0.4); BILIRUBIN,TOTAL 1.1 mg/dL (0.2-1.3); BLOOD UREA NITROGEN 20 mg/dL (7-20); CALCIUM 10.1 mg/dL (8.4-10.2); CARBON DIOXIDE 26 mmol/L (22-30); CHLORIDE 101 mmol/L (98-107); GLUCOSE 112 mg/dL (75-110); POTASSIUM 4.8 mmol/L (3.6-5.0); SODIUM 138.1 mmol/L (137-145); TOTAL PROTEIN 7.4 g/dL (6.3-8.2)
[2018-08-25 11:43] VITALS: BP 118/81
--- NOTE | 2018-08-25 12:50 | XCELERA REPORT ---
[address] [place] [facility] [address] Lower Extremity Venous Evaluation Procedure: Color flow and duplex imaging of the veins of the right lower extremity as well as the left Common Femoral vein. Right Sided Venous Evaluation Normal vessel filling wall to wall, compression and augmentation as well as Colour flow down to the infrageniculate veins. Left Sided Venous Evaluation The left common femoral vein is fully compressible. Spontaneous and phasic flow is present in the left common femoral vein. Interpretation Summary No duplex evidence of DVT or obstruction in the right lower extremity nor in the left Common Femoral vein. Name: SHAWNA REAL Kacie Age: 53 yrs Gender: Male : 1965 Patient Status: Emergency Patient Location: ER Study Date: 08/25/2018 11:18 AM Reason For Study: right pain behind calf, r/o dvt Ordering Physician: JOSH BUSH Performed By: Marlene Marr : JOSH BUSH > Alonso Dumas
== END 2018-08-25 11:44 | disposition home or self-care (01) ==
LOC: ER 09:31
DX: M25.561 Pain in right knee (principal); R30.9 Painful micturition, unspecified; R11.0 Nausea; F17.200 Nicotine dependence, unspecified, uncomplicated; I10 Essential (primary) hypertension; J45.909 Unspecified asthma, uncomplicated
CPT/HCPCS: 36415; 80053; 81001; 85025; 85610; 85730; 93971; 99284

== ENCOUNTER → 2018-09-13 | Outpatient (CLI) | payer MEDICARE, MEDICAID ==
[2018-09-13 12:57] LABS: HEMATOCRIT 48.8 % (37.9-51.0); HEMOGLOBIN 16.5 g/dL (13.5-17.0); MEAN CORPUSCULAR HEMOGLOBIN 29.4 pg (27.0-33.4); MEAN CORPUSCULAR HGB CONC 33.9 g/dL (32.0-36.0); MEAN CORPUSCULAR VOLUME 87 fl (80-97); PLATELET COUNT 152 10^3/uL (150-450); RED BLOOD COUNT 5.63 10^6/uL (4.35-5.55); RED CELL DISTRIBUTION WIDTH 13.5 % (11.5-14.0); WHITE BLOOD COUNT 6.5 10^3/uL (4.0-10.5)
[2018-09-13 13:20] LABS: ALANINE AMINOTRANSFERASE 32 U/L (21-72); ALBUMIN 4.7 g/dL (3.5-5.0); ALKALINE PHOSPHATASE 44 U/L (38-126); ASPARTATE AMINO TRANSFERASE 30 U/L (17-59); BILIRUBIN,DIRECT 0.2 mg/dL (0.0-0.4); BILIRUBIN,TOTAL 0.8 mg/dL (0.2-1.3); TOTAL PROTEIN 7.2 g/dL (6.3-8.2)
== END ==
LOC: LAB 12:32
PROVIDERS: ATTEND Psychiatry & Neurology Psychiatry
DX: F31.81 Bipolar II disorder (principal); Z79.899 Other long term (current) drug therapy
CPT/HCPCS: 36415; 80076; 80164; 85027

== ENCOUNTER 2018-11-12 12:15 | Emergency (ER) | payer MEDICARE, MEDICAID ==
[2018-11-12] MEDS ORDERED: NORMAL SALINE 1000 ML 1,000 ML IV ONE (13:11)
--- NOTE | 2018-11-12 13:11 | ER Document Report ---
ED Medical Screen (RME) - General Chief Complaint: Rectal Bleeding Stated Complaint: BLOOD IN STOOL Time Seen by Provider: 11/12/18 12:47 Notes: Patient is a 53-year-old male that presents to the emergency department for chief complaint of rectal bleeding, started today, he also had left lower quadrant tenderness when he palpated on his abdomen. No prior history of this. Denies vomiting, or nausea. ROS: Other than noted above, the 12 point review of systems was reviewed with the patient and were negative, all pertinent findings are included in the HPI. PHYSICAL EXAMINATION: Vital signs reviewed. GENERAL: Well-appearing, well-nourished and in no acute distress. HEAD: Atraumatic, normocephalic. EYES: Pupils equal round extraocular movements intact, conjunctiva are normal. ENT: Nares patent NECK: Normal range of motion CV: Heart regular rate and rhythm LUNGS: No respiratory distress Musculoskeletal: Normal range of motion NEUROLOGICAL: Normal speech PSYCH: Normal mood, normal affect. MDM: Patient seen and examined for rapid initial assessment. Vital signs reviewed. A comprehensive ED assessment and evaluation of the patient, analysis of test results and completion of the medical decision making process will be conducted by additional ED providers. *Note is created using voice recognition software and may contain spelling, syntax or grammatical errors. TRAVEL OUTSIDE OF THE [place] IN LAST 30 DAYS: No - Related Data Allergies/Adverse Reactions: amoxicillin [From Augmentin] Allergy (Verified 11/12/18 12:17) azithromycin [From Zithromax] Allergy (Verified 11/12/18 12:17) clarithromycin [From Biaxin] Allergy (Verified 11/12/18 12:17) clavulanic acid [From Augmentin] Allergy (Verified 11/12/18 12:17) sulfamethoxazole [From Bactrim] Allergy (Verified 11/12/18 12:17) trimethoprim [From Bactrim] Allergy (Verified 11/12/18 12:17) Past Medical History - Social History Chew tobacco use (# tins/day): No Frequency of alcohol use: None Drug Abuse: None - Past Medical History Cardiac Medical History: Reports: Hx Hypercholesterolemia - triglycerides, Hx Hypertension Pulmonary Medical History: Reports: Hx Asthma, Hx COPD Renal/ Medical History: Denies: Hx Peritoneal Dialysis Psychiatric Medical History: Reports: Hx Anxiety, Hx Obsessive Compulsive Disorder Past Surgical History: Reports: Hx Abdominal Surgery - bilateral hernia, Hx Appendectomy Physical Exam - Vital signs Vitals: Temp Pulse Resp BP Pulse Ox 98.5 F 94 16 139/97 H 96 11/12/18 12:28 11/12/18 12:28 11/12/18 12:28 11/12/18 12:28 11/12/18 12:28 Course - Vital Signs Vital signs: Temp Pulse Resp BP Pulse Ox 98.5 F 94 16 139/97 H 96 11/12/18 12:28 11/12/18 12:28 11/12/18 12:28 11/12/18 12:28 11/12/18 12:28 Doctor's Discharge - Discharge Referrals: PASCUAL EPPS MD [Primary Care Provider] - Follow up as needed
[2018-11-12 13:55] LABS: ABSOLUTE EOSINOPHILS # (AUTO) 0.1 10^3/uL (0.0-0.6); ABSOLUTE LYMPHOCYTES (AUTO) 1.7 10^3/uL (0.5-4.7); ABSOLUTE MONOCYTES (AUTO) 0.4 10^3/uL (0.1-1.4); ABSOLUTE NEUT (AUTO) 3.5 10^3/uL (1.7-8.2); BASOPHILS % (AUTO) 0.7 % (0-2); EOSINOPHILS % (AUTO) 1.6 % (0-6); HEMATOCRIT 48.8 % (37.9-51.0); HEMOGLOBIN 16.7 g/dL (13.5-17.0); LYMPHOCYTES % (AUTO) 29.6 % (13-45); MEAN CORPUSCULAR HEMOGLOBIN 29.7 pg (27.0-33.4); MEAN CORPUSCULAR HGB CONC 34.3 g/dL (32.0-36.0); MEAN CORPUSCULAR VOLUME 87 fl (80-97); MONOCYTES % (AUTO) 6.5 % (3-13); PLATELET COUNT 153 10^3/uL (150-450); RED BLOOD COUNT 5.62 10^6/uL (4.35-5.55); RED CELL DISTRIBUTION WIDTH 13.8 % (11.5-14.0); SEGMENTED NEUTROPHILS % (AUTO) 61.6 % (42-78); TOTAL CELLS COUNTED % (AUTO) 100 %; WHITE BLOOD COUNT 5.6 10^3/uL (4.0-10.5)
--- NOTE | 2018-11-12 14:59 | ER Document Report ---
ED General - General Chief Complaint: Rectal Bleeding Stated Complaint: BLOOD IN STOOL Time Seen by Provider: 11/12/18 12:47 Mode of Arrival: Ambulatory Information source: Patient Notes: 53-year-old male presents emergency department for complaints of rectal bleeding and left lower quadrant abdominal pain that started today. Patient states that he had a bowel movement and noticed bright red blood in the toilet. Patient states that he brought in a stool sample. Patient describes his abdominal pain as a dull aching sensation. No radiation. No alleviating or exacerbating factors. He denies any associated nausea, vomiting, diarrhea, constipation, dysuria, hematuria, increased urgency, increased frequency, testicular pain, penile discharge. Patient has had an appendectomy in the past. TRAVEL OUTSIDE OF THE [place] IN LAST 30 DAYS: No - HPI Onset: This morning Onset/Duration: Sudden Quality of pain: Achy Severity: Mild Associated symptoms: None Exacerbated by: Denies Relieved by: Denies Similar symptoms previously: No Recently seen / treated by doctor: No - Related Data Allergies/Adverse Reactions: amoxicillin [From Augmentin] Allergy (Verified 11/12/18 12:17) azithromycin [From Zithromax] Allergy (Verified 11/12/18 12:17) clarithromycin [From Biaxin] Allergy (Verified 11/12/18 12:17) clavulanic acid [From Augmentin] Allergy (Verified 11/12/18 12:17) sulfamethoxazole [From Bactrim] Allergy (Verified 11/12/18 12:17) trimethoprim [From Bactrim] Allergy (Verified 11/12/18 12:17) Past Medical History - General Information source: Patient - Social History Smoking Status: Current Every Day Smoker Chew tobacco use (# tins/day): No Frequency of alcohol use: None Drug Abuse: None Family History: Reviewed & Not Pertinent Patient has suicidal ideation: No Patient has homicidal ideation: No - Past Medical History Cardiac Medical History: Reports: Hx Hypercholesterolemia - triglycerides, Hx Hypertension Pulmonary Medical History: Reports: Hx Asthma, Hx COPD Renal/ Medical History: Denies: Hx Peritoneal Dialysis Psychiatric Medical History: Reports: Hx Anxiety, Hx Obsessive Compulsive Disorder Past Surgical History: Reports: Hx Abdominal Surgery - bilateral hernia, Hx Appendectomy Review of Systems - Review of Systems Constitutional: No symptoms reported EENT: No symptoms reported Cardiovascular: No symptoms reported Respiratory: No symptoms reported Gastrointestinal: Abdominal pain, Rectal bleeding Genitourinary: No symptoms reported Musculoskeletal: No symptoms reported Skin: No symptoms reported Hematologic/Lymphatic: No symptoms reported Neurological/Psychological: No symptoms reported -: Yes All other systems reviewed and negative Physical Exam - Vital signs Vitals: Temp Pulse Resp BP Pulse Ox 98.5 F 94 16 139/97 H 96 11/12/18 12:28 11/12/18 12:28 11/12/18 12:28 11/12/18 12:28 11/12/18 12:28 - Notes Notes: PHYSICAL EXAMINATION: GENERAL: Well-appearing, well-nourished and in no acute distress. HEAD: Atraumatic, normocephalic. EYES: Pupils equal round and reactive to light, extraocular movements intact, sclera anicteric, conjunctiva are normal. ENT: Nares patent, oropharynx clear without exudates. Moist mucous membranes. NECK: Normal range of motion, supple without lymphadenopathy LUNGS: Breath sounds clear to auscultation bilaterally and equal. No wheezes rales or rhonchi. HEART: Regular rate and rhythm without murmurs ABDOMEN: Soft, nontender, nondistended abdomen. No guarding, no rebound. No masses appreciated. Rectal exam done. No fissures or hemorrhoids appreciated. No gross blood. Hemoccult negative stool. Musculoskeletal: Normal range of motion, no pitting or edema. No cyanosis. NEUROLOGICAL: Cranial nerves grossly intact. Normal speech, normal gait. Normal sensory, motor exams PSYCH: Normal mood, normal affect. SKIN: Warm, Dry, normal turgor, no rashes or lesions noted. Course - Re-evaluation Re-evalutation: 11/12/18 14:58 Physical exam is unremarkable. Patient did not have any tenderness to palpation in the left lower quadrant on exam. Patient states that he does feel a dull aching sensation in that area. Heme occult negative stool. No anal fissure or hemorrhoids appreciated on exam. 11/12/18 17:40 Labs and imaging obtained. Patient's lipase is elevated. He is not having any tenderness to palpation in the left upper quadrant. CT abdomen and pelvis was obtained. No acute process was identified. I instructed the patient to follow- up with his primary care physician this week, to follow-up with the GI physician provided, to continue taking medications as directed, and to return for any worsening symptoms. Patient is agreeable to plan of care. 11/12/18 17:43 - Vital Signs Vital signs: Temp Pulse Resp BP Pulse Ox 98.5 F 94 16 139/97 H 96 11/12/18 12:28 11/12/18 12:28 11/12/18 12:28 11/12/18 12:28 11/12/18 12:28 - Laboratory Result Diagrams: 11/12/18 13:27 11/12/18 15:11 Laboratory results interpreted by me: 11/12/18 11/12/18 13:27 15:11 RBC 5.62 H ALT 19 L Lipase 1268.1 H Discharge - Discharge Clinical Impression: Lower GI bleed Condition: Good Disposition: HOME, SELF-CARE Instructions: Abdominal Pain ([facility]) Referrals: PASCUAL EPPS MD [Primary Care Provider] - Follow up as needed CONCETTA DAMIAN MD [ACTIVE STAFF] - Follow up as needed
[2018-11-12 15:35] LABS: ALANINE AMINOTRANSFERASE 19 U/L (21-72); ALBUMIN 4.3 g/dL (3.5-5.0); ALKALINE PHOSPHATASE 41 U/L (38-126); ANION GAP 9 (5-19); ASPARTATE AMINO TRANSFERASE 22 U/L (17-59); BILIRUBIN,DIRECT 0.2 mg/dL (0.0-0.4); BILIRUBIN,TOTAL 0.5 mg/dL (0.2-1.3); BLOOD UREA NITROGEN 20 mg/dL (7-20); CALCIUM 9.4 mg/dL (8.4-10.2); CARBON DIOXIDE 28 mmol/L (22-30); CHLORIDE 105 mmol/L (98-107); GLUCOSE 95 mg/dL (75-110); LIPASE 1268.1 U/L (23-300); POTASSIUM 4.6 mmol/L (3.6-5.0); SODIUM 141.9 mmol/L (137-145); TOTAL PROTEIN 6.7 g/dL (6.3-8.2)
--- NOTE | 2018-11-12 16:43 | RADIOLOGY REPORT (SQ) ---
EXAM DESCRIPTION: CT ABD/PELVIS WITH IV ONLY COMPLETED DATE/TIME: 11/12/2018 4:27 pm REASON FOR STUDY: llq abdominal pain COMPARISON: None. TECHNIQUE: CT scan of the abdomen and pelvis performed using helical scanning technique with dynamic intravenous contrast injection. No oral contrast. Images reviewed with lung, soft tissue, and bone windows. Reconstructed coronal and sagittal MPR images reviewed. Delayed images for evaluation of the urinary system also acquired. All images stored on PACS. All CT scanners at this facility use dose modulation, iterative reconstruction, and/or weight based d osing when appropriate to reduce radiation dose to as low as reasonably achievable (ALARA). [facility]: Dose Right [facility]: CareDose [facility]: Dose Right [facility]: Teradose 4D [facility]: [employer] CONTRAST TYPE AND DOSE: contrast/concentration: Isovue 350.00 mg/ml; Total Contrast Delivered: 90.0 ml; Total Saline Delivered: 70.0 ml RENAL FUNCTION: GFR > 60. RADIATION DOSE: CT Rad equipment meets quality standard of care and radiation dose reduction techniq ues were employed. CTDIvol: 8.1 - 11.4 mGy. DLP: 1088 mGy-cm.. LIMITATIONS: None. FINDINGS: LOWER CHEST: No significant findings. No nodules or infiltrates. LIVER: Fatty. SPLEEN: Normal size. No focal lesions. PANCREAS: No masses. No significant calcifications. No adjacent inflammation or peripancreatic fluid collections. Pancreatic duct not dilated. GALLBLADDER: Contracted, normal. ADRENAL GLANDS: No significant masses or asymmetry. RIGHT KIDNEY AND URETER: No solid masses. No significant calcification. No hydronephrosis or hydroure ter. LEFT KIDNEY AND URETER: No solid masses. No significant calcification. No hydronephrosis or hydrouret er. AORTA AND VESSELS: No aneurysm. No dissection. Renal arteries, SMA, celiac without stenosis. RETROPERITONEUM: No retroperitoneal adenopathy, hemorrhage or masses. BOWEL AND PERITONEAL CAVITY: No masses or inflammatory changes. No free fluid or peritoneal masses. APPENDIX: Surgically absent. PELVIS: Mild bladder distention. Bladder otherwise normal. No pelvic mass or free fluid. ABDOMINAL WALL: No masses. No hernias. BONES: No significant or acute findings. OTHER: No other significant finding. IMPRESSION: No acute abdominopelvic abnormality. TECHNICAL DOCUMENTATION: JOB ID: [id number] Quality ID # [id number]: Final reports with documentation of one or more dose reduction techniques (e.g., Au tomated exposure control, adjustment of the mA and/or kV according to patient size, use of iterative reconstruction technique) 2010 [employer]- All Rights Reserved Reading location - IP/workstation name: [email or web address]
[2018-11-12 19:31] VITALS: BP 140/96
== END 2018-11-12 18:00 | disposition home or self-care (01) ==
LOC: ER 12:15
DX: K92.2 Gastrointestinal hemorrhage, unspecified (principal); K62.5 Hemorrhage of anus and rectum; R10.32 Left lower quadrant pain; F17.200 Nicotine dependence, unspecified, uncomplicated; J44.9 Chronic obstructive pulmonary disease, unspecified
CPT/HCPCS: 99284; 96360; 96361; 36415; 83690; 85025; 80053; 74177; J7030

== ENCOUNTER 2019-06-18 11:35 | Emergency (ER) | payer MEDICARE, MEDICAID ==
[2019-06-18 11:40] VITALS: BP 144/88
--- NOTE | 2019-06-18 12:29 | ER Document Report ---
HPI - HPI Patient complains to provider of: left ear pain Time Seen by Provider: 06/18/19 12:18 Onset: Yesterday Onset/Duration: Sudden Pain Level: 4 Context: This 54-year-old male presents emergency department with complaints of left ear pain that started yesterday. Patient denies fever vomiting diarrhea. Denies recent swimming. Denies recent trauma. Reports his ear to start hurting. P katerin is deaf. He does wear bilateral hearing aids. Patient also reports that he is being treated for prostitis with Cipro for the past 17 days. Associated Symptoms: None Exacerbated by: Denies Relieved by: Denies Similar symptoms previously: No Recently seen / treated by doctor: No - CONSTITUTIONAL Constitutional: DENIES: Fever, Chills - EENT EENT: REPORTS: Ear Pain - L ear - REPRODUCTIVE Reproductive: DENIES: : Past Medical History - General Information source: Patient - Social History Smoking Status: Current Every Day Smoker Frequency of alcohol use: None Drug Abuse: None Family History: Reviewed & Not Pertinent Patient has suicidal ideation: No Patient has homicidal ideation: No - Past Medical History Cardiac Medical History: Reports: Hx Hypercholesterolemia - triglycerides, Hx Hypertension Pulmonary Medical History: Reports: Hx Asthma, Hx COPD Renal/ Medical History: Denies: Hx Peritoneal Dialysis Psychiatric Medical History: Reports: Hx Anxiety, Hx Obsessive Compulsive Disorder Past Surgical History: Reports: Hx Abdominal Surgery - bilateral hernia, Hx Appendectomy Vertical Provider Document - CONSTITUTIONAL Agree With Documented VS: Yes Exam Limitations: No Limitations General Appearance: WD/WN, No Apparent Distress - INFECTION CONTROL TRAVEL OUTSIDE OF THE [place] IN LAST 30 DAYS: No - HEENT HEENT: Atraumatic, Normal ENT Exam, Normocephalic. negative: Conjuctival Injection, Pharyngeal Tenderness, Pharyngeal Erythema, Tympanic Membrane Red, Tympanic Membrane Bulging Notes: Patient complains of some tenderness to the angle of his jaw no erythema no redness no swelling. Patient opens his mouth wide no lymph node swelling noted - NECK Neck: Normal Inspection, Supple. negative: Lymphadenopathy-Left, Lymphadenopathy-Right - RESPIRATORY Respiratory: Breath Sounds Normal, No Respiratory Distress - CARDIOVASCULAR Cardiovascular: Regular Rate - MUSCULOSKELETAL/EXTREMETIES Musculoskeletal/Extremeties: MAEW, FROM - NEURO Level of Consciousness: Awake, Alert, Appropriate Motor/Sensory: No Motor Deficit - DERM Integumentary: Warm, Dry Course - Re-evaluation Re-evalutation: 06/18/19 13:38 This 4-year-old male presents the emergency department with complaints of left ear pain that started yesterday. Reports he is taking Cipro for prostatitis and worried that may be affecting his ear. Patient is has a history of being deaf and wears hearing aids in both ears. He denies fever vomiting diarrhea. Just complains of pain took Tylenol and did have some relief with that. No obvious signs of infection to his ear. Patient is not tender on his mastoid area. Patient was instructed to follow-up with Dr. chang tomorrow for recheck he verbalized understanding. Dictation of this chart was performed using voice recognition software; therefore, there may be some unintended grammatical errors. - Vital Signs Vital signs: Temp Pulse Resp BP Pulse Ox 97.9 F 102 H 14 144/88 H 95 06/18/19 11:39 06/18/19 11:39 06/18/19 11:39 06/18/19 11:39 06/18/19 11:39 Discharge - Discharge Clinical Impression: Left ear pain Condition: Stable Disposition: HOME, SELF-CARE Instructions: Acetaminophen Additional Instructions: *You have been evaluated for ear pain *Follow up with a primary care provider *Take Tylenol or Motrin as indicated for pain *Return to ED for worsening condition, changes, needs Referrals: PASCUAL EPPS MD [NO LOCAL MD] - Follow up in 3-5 days
== END 2019-06-18 12:36 | disposition home or self-care (01) ==
LOC: ER 11:35
DX: H92.02 Otalgia, left ear (principal); H91.90 Unspecified hearing loss, unspecified ear; N41.9 Inflammatory disease of prostate, unspecified; F17.200 Nicotine dependence, unspecified, uncomplicated; I10 Essential (primary) hypertension; J44.9 Chronic obstructive pulmonary disease, unspecified
CPT/HCPCS: 99282

== ENCOUNTER → 2019-07-11 | Outpatient (CLI) | payer MEDICARE, MEDICAID ==
[2019-07-11 09:10] LABS: ABSOLUTE EOSINOPHILS # (AUTO) 0.1 10^3/uL (0.0-0.6); ABSOLUTE LYMPHOCYTES (AUTO) 1.7 10^3/uL (0.5-4.7); ABSOLUTE MONOCYTES (AUTO) 0.5 10^3/uL (0.1-1.4); ABSOLUTE NEUT (AUTO) 3.1 10^3/uL (1.7-8.2); BASOPHILS % (AUTO) 0.1 % (0-2); EOSINOPHILS % (AUTO) 2.7 % (0-6); HEMATOCRIT 51.1 % (37.9-51.0); HEMOGLOBIN 16.9 g/dL (13.5-17.0); LYMPHOCYTES % (AUTO) 30.7 % (13-45); MEAN CORPUSCULAR HEMOGLOBIN 28.3 pg (27.0-33.4); MEAN CORPUSCULAR HGB CONC 33.2 g/dL (32.0-36.0); MEAN CORPUSCULAR VOLUME 85 fl (80-97); MONOCYTES % (AUTO) 9.2 % (3-13); PLATELET COUNT 155 10^3/uL (150-450); RED BLOOD COUNT 5.98 10^6/uL (4.35-5.55); RED CELL DISTRIBUTION WIDTH 13.9 % (11.5-14.0); SEGMENTED NEUTROPHILS % (AUTO) 57.3 % (42-78); TOTAL CELLS COUNTED % (AUTO) 100 %; WHITE BLOOD COUNT 5.4 10^3/uL (4.0-10.5)
[2019-07-11 09:12] LABS: ABSOLUTE EOSINOPHILS # (AUTO) 0.1 10^3/uL (0.0-0.6); ABSOLUTE LYMPHOCYTES (AUTO) 1.7 10^3/uL (0.5-4.7); ABSOLUTE MONOCYTES (AUTO) 0.5 10^3/uL (0.1-1.4); ABSOLUTE NEUT (AUTO) 3.1 10^3/uL (1.7-8.2); BASOPHILS % (AUTO) 0.1 % (0-2); EOSINOPHILS % (AUTO) 2.7 % (0-6); HEMATOCRIT 51.1 % (37.9-51.0); HEMOGLOBIN 16.9 g/dL (13.5-17.0); LYMPHOCYTES % (AUTO) 30.7 % (13-45); MEAN CORPUSCULAR HEMOGLOBIN 28.3 pg (27.0-33.4); MEAN CORPUSCULAR HGB CONC 33.2 g/dL (32.0-36.0); MEAN CORPUSCULAR VOLUME 85 fl (80-97); MONOCYTES % (AUTO) 9.2 % (3-13); PLATELET COUNT 155 10^3/uL (150-450); RED BLOOD COUNT 5.98 10^6/uL (4.35-5.55); RED CELL DISTRIBUTION WIDTH 13.9 % (11.5-14.0); SEGMENTED NEUTROPHILS % (AUTO) 57.3 % (42-78); TOTAL CELLS COUNTED % (AUTO) 100 %; WHITE BLOOD COUNT 5.4 10^3/uL (4.0-10.5)
[2019-07-11 09:29] LABS: ALBUMIN 4.9 g/dL (3.5-5.0); ALKALINE PHOSPHATASE 55 U/L (38-126); ANION GAP 9 (5-19); ASPARTATE AMINO TRANSFERASE 33 U/L (17-59); BILIRUBIN,DIRECT 0.2 mg/dL (0.0-0.4); BILIRUBIN,TOTAL 0.5 mg/dL (0.2-1.3); BLOOD UREA NITROGEN 18 mg/dL (7-20); CALCIUM 10.5 mg/dL (8.4-10.2); CARBON DIOXIDE 32 mmol/L (22-30); CHLORIDE 100 mmol/L (98-107); CHOLESTEROL 239.08 mg/dL (0-200); GLUCOSE 119 mg/dL (75-110); POTASSIUM 4.9 mmol/L (3.6-5.0); TOTAL PROTEIN 7.3 g/dL (6.3-8.2)
[2019-07-11 09:40] LABS: DIRECT LDL 115 mg/dL (<100)
[2019-07-11 09:45] LABS: FREE T4 (FREE THYROXINE) 1.36 ng/dL (0.78-2.19)
[2019-07-11 09:46] LABS: TRIGLYCERIDES 728 mg/dL (<150)
[2019-07-11 09:47] LABS: ALBUMIN 4.9 g/dL (3.5-5.0); ALKALINE PHOSPHATASE 55 U/L (38-126); ANION GAP 9 (5-19); ASPARTATE AMINO TRANSFERASE 33 U/L (17-59); BILIRUBIN,DIRECT 0.2 mg/dL (0.0-0.4); BILIRUBIN,TOTAL 0.5 mg/dL (0.2-1.3); BLOOD UREA NITROGEN 18 mg/dL (7-20); CALCIUM 10.5 mg/dL (8.4-10.2); CARBON DIOXIDE 32 mmol/L (22-30); CHLORIDE 100 mmol/L (98-107); CHOLESTEROL 239.08 mg/dL (0-200); DIRECT LDL 115 mg/dL (<100); GLUCOSE 119 mg/dL (75-110); POTASSIUM 4.9 mmol/L (3.6-5.0); TOTAL PROTEIN 7.3 g/dL (6.3-8.2)
[2019-07-11 09:48] LABS: TRIGLYCERIDES 728 mg/dL (<150)
[2019-07-11 09:59] LABS: THYROID STIMULATING HORMONE 18.6 uIU/mL (0.47-4.68)
== END ==
LOC: LAB 08:29
PROVIDERS: ATTEND Internal Medicine
DX: E78.2 Mixed hyperlipidemia (principal); I34.1 Nonrheumatic mitral (valve) prolapse; J44.9 Chronic obstructive pulmonary disease, unspecified; E03.9 Hypothyroidism, unspecified; E78.1 Pure hyperglyceridemia; F31.81 Bipolar II disorder; F41.1 Generalized anxiety disorder; Z79.899 Other long term (current) drug therapy
CPT/HCPCS: 36415; 80053; 80061; 80164; 82140; 82465; 83036; 83721; 84439; 84443; 84478; 85025; 87070

== ENCOUNTER → 2019-08-28 | Outpatient (CLI) | payer MEDICARE, MEDICAID ==
[2019-08-28 09:52] LABS: CHOLESTEROL 215.44 mg/dL (0-200); TRIGLYCERIDES 506 mg/dL (<150)
[2019-08-28 10:03] LABS: DIRECT LDL 127 mg/dL (<100)
[2019-08-28 10:55] LABS: FREE T4 (FREE THYROXINE) 1.28 ng/dL (0.78-2.19)
[2019-08-28 11:08] LABS: THYROID STIMULATING HORMONE 7.28 uIU/mL (0.47-4.68)
== END ==
LOC: LAB 08:47
PROVIDERS: ATTEND Internal Medicine
DX: E03.9 Hypothyroidism, unspecified (principal); E78.5 Hyperlipidemia, unspecified; Z79.899 Other long term (current) drug therapy
CPT/HCPCS: 36415; 80061; 84439; 84443

== ENCOUNTER 2020-03-12 00:13 | Emergency (ER) | payer MEDICAID, MEDICARE ==
--- NOTE | 2020-03-12 00:56 | ER Document Report ---
HPI - HPI Patient complains to provider of: anxiety Time Seen by Provider: 03/12/20 00:27 Pain Level: 0 Context: 55-year-old male with schizoaffective disorder, Nini's thyroiditis, hyperlipidemia, BPH, presents to the emergency department by EMS for an anxiety attack. Patient states that he was changing his ueeslv-te-syi's peritoneal dialysis and started to feel overwhelmed, became grossly diaphoretic and clammy, and told his that he needed to come in by ambulance. She told him to take a Xanax to see if he would feel better. When EMS arrived he said that he [place] started feeling better but they noted that he was still diaphoretic and asked that he wanted to come in for assessment. He agreed. He arrived here and upon interview was feeling "much better" and back to baseline. Patient states that he just "wants to get checked out". Patient denies any SI/HI, denies any visual or auditory hallucinations, denies any palpitations, denies chest pain or shortness of breath, denies any numbness or tingling in his extremities, no other complaints - REPRODUCTIVE Reproductive: DENIES: : Past Medical History - Social History Smoking Status: Unknown if Ever Smoked Family History: Reviewed & Not Pertinent Patient has suicidal ideation: No Patient has homicidal ideation: No - Past Medical History Cardiac Medical History: Reports: Hx Hypercholesterolemia - triglycerides, Hx Hypertension Pulmonary Medical History: Reports: Hx Asthma, Hx COPD Renal/ Medical History: Denies: Hx Peritoneal Dialysis Psychiatric Medical History: Reports: Hx Anxiety, Hx Obsessive Compulsive Disorder Past Surgical History: Reports: Hx Abdominal Surgery - bilateral hernia, Hx Appendectomy Vertical Provider Document - CONSTITUTIONAL Notes: PHYSICAL EXAMINATION: Reviewed vital signs and charting by RN GENERAL: Alert, interacts well. No acute distress. HEAD: Normocephalic, atraumatic. EYES: Pupils equal and round. Extraocular movements intact. ENT: Oral mucosa moist, tongue midline. NECK: Full range of motion. Trachea midline. LUNGS: Clear to auscultation bilaterally, no wheezes, rales, or rhonchi. No respiratory distress. HEART: Regular rate and rhythm. No murmur ABDOMEN: soft, non-tender. No distention. Bowel sounds present EXTREMITIES: Moves all 4 extremities spontaneously. No edema, No cyanosis. 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 SKIN: Warm, dry, normal turgor. No rashes or lesions noted. - INFECTION CONTROL TRAVEL OUTSIDE OF THE [place] IN LAST 30 DAYS: No Course - Re-evaluation Re-evalutation: 03/12/20 01:20 Patient is well-appearing in no acute distress, patient is not diaphoretic, EKG showed a sinus rhythm with an existing left bundle branch block, no axis deviation, no evidence of ischemia, no T wave abnormalities, no STEMI or ST segment depressions. Patient states that he just wants a physical exam as he is back to his baseline and states that "I just needed to get out of that house after seeing the same faces day in and day out". Patient with a normal neurologic exam and normal physical exam. Patient did take a Xanax prior to arrival. At this time he is stable for discharge and has been given strict return precautions. - Vital Signs Vital signs: Temp Pulse Resp BP Pulse Ox 97.7 F 03/12/20 00:13 Discharge - Discharge Clinical Impression: Anxiety Condition: Good Disposition: HOME, SELF-CARE Instructions: Anxiety ([facility]) Additional Instructions: You were seen in the emergency department this evening for anxiety. You were symptom-free when you came by ambulance. It is reassuring that you are feeling better. Please return to the ER if you have worsening symptoms, chest pain, shortness of breath, or acute psychiatric crisis. Referrals: BRYANNA WESTBROOK MD [Primary Care Provider] - Follow up as needed
== END 2020-03-12 01:04 | disposition home or self-care (01) ==
LOC: ER 00:13
DX: F41.9 Anxiety disorder, unspecified (principal); I44.7 Left bundle-branch block, unspecified; J44.9 Chronic obstructive pulmonary disease, unspecified; I10 Essential (primary) hypertension
CPT/HCPCS: 99283